=== PATIENT | male | born 1975 | race Asian ===

== ENCOUNTER 2023-06-21 09:15 | Emergency (ER) | payer BC, OTHER ==
[2023-06-21] MEDS ORDERED: Acetaminophen 500 MG TAB ONE (09:38)
== END 2023-06-21 11:18 | disposition home or self-care (01) ==
LOC: ERS 09:15
DX: S06.0X0A Concussion without loss of consciousness, initial encounter (principal); R00.8 Other abnormalities of heart beat; V89.2XXA Person injured in unspecified motor-vehicle accident, traffic, initial encounter
CPT/HCPCS: 70450; 93005; G0390